=== PATIENT | female | born 1985 | race Hispanic/Latino ===

== ENCOUNTER 2017-08-14 21:19 | Emergency (ER) | payer BC ==
[2017-08-14 21:34] VITALS: BMI 29.0
[2017-08-14] MEDS ORDERED: TDAP Vaccine 0.5 mL Syr IM ONE (22:21)
--- NOTE | 2017-08-14 22:26 | ED PDOC ---
Arrival/HPI - General Chief Complaint: Abnormal Skin Integrity Time Seen by Provider: 08/14/17 21:53 Historian: Patient, Other (finance assistant) - History of Present Illness Narrative History of Present Illness (Text): you were treated in the ED today for tetanus out of date past 5 years, had an accidental cut to the left hand while at work with razor work, and otherwise without any pain/nausea/vomiting/headache/dizziness/difficulty breathing/chest pain/abdomen pain/numbness/tingling/loss of limb function/pain with urination. You were otherwise breathing easily, pink moist lips, smiling and talking with your finance assistant, good strength/sensation, alert/oriented, walking easily, clear lungs, no abdomen tenderness, left back of hand small cut with full range of motion/no bony tenderness/and otherwise warm/sensation/pink/warm/sensation/good radial pulse, no fever temp 98.5, stable heart rate 75, stable breathing rate 18 , excellent oxygen level 99% room air, elevated blood pressure 130/75 which we recommend repeat in 2-3 days primary care office to determine further treatment , you didn't want xray, you requested glue closure and cautioned for possible wound opening, and ant-septic cleanse with glue dermabond closure, observation, tetanus shot booster done in the ED with improvement, counselled to keep wound dry for 2 days, then can wet but don't rub and allow for limited movement to allow healing and prevent disruption of glue and thus discharged home with finance assistant. 1. Recommend follow-up primary care 2-3 days to review symptoms, for wound check. 2. If any worsening pain, fever, chills, nausea, vomiting, difficulty breathing, numbness, loss of limb function, pain with urination or any medical condition then return to the ED. 08/14/17 22:22 08/14/17 22:22 Time/Duration: 1-3 hours Symptom Onset: Gradual Quality: Other (no pain) Activities at Onset: Rest Context: Sitting Past Medical History - Provider Review Nursing Documentation Reviewed: Yes - Travel History Have you recently traveled outside [place] w/in the past 3 mons?: No - Cardiac Hx Cardiac Disorders: No - Pulmonary Hx Respiratory Disorders: No - Neurological Hx Neurological Disorder: No - HEENT Hx HEENT Disorder: No - Renal Hx Renal Disorder: No - Endocrine/Metabolic Hx Endocrine Disorders: No - Hematological/Oncological Hx Blood Disorders: No - Integumentary Hx Dermatological Disorder: No - Musculoskeletal/Rheumatological Hx Musculoskeletal Disorders: No - Gastrointestinal Hx Gastrointestinal Disorders: No - Genitourinary/Gynecological Hx Genitourinary Disorders: No - Psychiatric Hx Psychophysiologic Disorder: No Hx Substance Use: No - Surgical History Hx Appendectomy: Yes Family/Social History - Physician Review Nursing Documentation Reviewed: Yes Family/Social History: No Known Family HX Smoking Status: Light Smoker < 10 Cigarettes Daily Hx Alcohol Use: Yes Frequency of alcohol use: Socially Hx Substance Use: No Allergies/Home Meds Allergies/Adverse Reactions: Allergies amoxicillin Allergy (Verified 08/14/17 21:35) ANAPHYLAXIS gentamicin Allergy (Verified 08/14/17 21:35) URTICARIA Penicillins Allergy (Verified 08/14/17 21:35) ANAPHYLAXIS Tetracyclines Allergy (Verified 08/14/17 21:35) URTICARIA Home Medications: Home Meds Medication Instructions Recorded Confirmed No Known Home Med 08/14/17 08/14/17 Review of Systems - Review of Systems Constitutional: Normal Eyes: Normal ENT: Normal Respiratory: Normal Cardiovascular: Normal Gastrointestinal: Normal Genitourinary Female: Normal Musculoskeletal: Normal, Other (see skin) Skin: Laceration Neurological: Normal Endocrine: Normal Hemo/Lymphatic: Normal Psychiatric: Normal Physical Exam Vital Signs Reviewed: Yes Vital Signs Temp Pulse Resp BP Pulse Ox 08/14/17 22:02 98.5 F 75 18 130/75 99 Temperature: Afebrile Blood Pressure: Hypertensive Pulse: Regular Respiratory Rate: Normal Appearance: Positive for: Well-Appearing, Non-Toxic, Comfortable Pain Distress: None Mental Status: Positive for: Alert and Oriented X 3 - Systems Exam Head: Present: Atraumatic, Normocephalic Pupils: Present: PERRL Extroacular Muscles: Present: EOMI Conjunctiva: Present: Normal Ears: Present: Normal Mouth: Present: Moist Mucous Membranes Pharnyx: Present: Normal Nose (External): Present: Atraumatic Nose (Internal): Present: Normal Inspection Neck: Present: Normal Range of Motion, Other (no c-t-l spinal or paraspinal tenderness) Respiratory/Chest: Present: Clear to Auscultation, Good Air Exchange Cardiovascular: Present: Regular Rate and Rhythm Abdomen: No: Tenderness, Distention, Normal Bowel Sounds, Peritoneal Signs, Rebound, Guarding, McBurney's Point Tender, Rovsing's Sign Present, Hernias, Feeding Tubes, Ostomy Tubes, Mass/Organomegaly, Scars, Other Upper Extremity: Present: Normal Inspection, Other ( left back of hand small cut 2.5cm with full range of motion/no bony tenderness/and otherwise warm/ sensation/pink/warm/sensation/good radial pulse) Lower Extremity: Present: Normal Inspection Neurological: Present: GCS=15, CN II-XII Intact, Speech Normal, Motor Func Grossly Intact Skin: Present: Warm, Other (see msk) Psychiatric: Present: Alert, Oriented x 3, Normal Insight, Normal Concentration Medical Decision Making ED Course and Treatment: you were treated in the ED today for tetanus out of date past 5 years, had an accidental cut to the left hand while at work with razor work, and otherwise without any pain/nausea/vomiting/headache/dizziness/difficulty breathing/chest pain/abdomen pain/numbness/tingling/loss of limb function/pain with urination. You were otherwise breathing easily, pink moist lips, smiling and talking with your finance assistant, good strength/sensation, alert/oriented, walking easily, clear lungs, no abdomen tenderness, left back of hand small cut with full range of motion/no bony tenderness/and otherwise warm/sensation/pink/warm/sensation/good radial pulse, no fever temp 98.5, stable heart rate 75, stable breathing rate 18 , excellent oxygen level 99% room air, elevated blood pressure 130/75 which we recommend repeat in 2-3 days primary care office to determine further treatment , you didn't want xray, you requested glue closure and cautioned for possible wound opening, and ant-septic cleanse with wound explored and no foriegn body, with glue dermabond closure, observation, tetanus shot booster done in the ED with improvement, counselled to keep wound dry for 2 days, then can wet but don' t rub and allow for limited movement to allow healing and prevent disruption of glue and thus discharged home with finance assistant. 1. Recommend follow-up primary care 2-3 days to review symptoms, for wound check. 2. If any worsening pain, fever, chills, nausea, vomiting, difficulty breathing, numbness, loss of limb function, pain with urination or any medical condition then return to the ED. 08/14/17 22:26 08/14/17 22:27 procedure note: left hand 2.5cm lac to muscle on the extensor surface, nacl/ antiseptic cleanse, wound explored wo foriegn body, approximation, glue dermabond, hemostasis, ekta procedure. Reassessment Condition: Re-examined, Improved Disposition/Present on Arrival - Present on Arrival Any Indicators Present on Arrival: No History of DVT/PE: No History of Uncontrolled Diabetes: No Urinary Catheter: No History of Decub. Ulcer: No History Surgical Site Infection Following: None - Disposition Have Diagnosis and Disposition been Completed?: Yes Diagnosis: Hand laceration Disposition: HOME/ ROUTINE Disposition Time: 22:26 Patient Plan: Discharge Condition: IMPROVED Additional Instructions: you were treated in the ED today for tetanus out of date past 5 years, had an accidental cut to the left hand while at work with razor work, and otherwise without any pain/nausea/vomiting/headache/dizziness/difficulty breathing/chest pain/abdomen pain/numbness/tingling/loss of limb function/pain with urination. You were otherwise breathing easily, pink moist lips, smiling and talking with your finance assistant, good strength/sensation, alert/oriented, walking easily, clear lungs, no abdomen tenderness, left back of hand small cut with full range of motion/no bony tenderness/and otherwise warm/sensation/pink/warm/sensation/good radial pulse, no fever temp 98.5, stable heart rate 75, stable breathing rate 18 , excellent oxygen level 99% room air, elevated blood pressure 130/75 which we recommend repeat in 2-3 days primary care office to determine further treatment , you didn't want xray, you requested glue closure and cautioned for possible wound opening, and ant-septic cleanse with wound explored and no foriegn body, with glue dermabond closure, observation, tetanus shot booster done in the ED with improvement, counselled to keep wound dry for 2 days, then can wet but don' t rub and allow for limited movement to allow healing and prevent disruption of glue and thus discharged home with finance assistant. 1. Recommend follow-up primary care 2-3 days to review symptoms, for wound check. 2. If any worsening pain, fever, chills, nausea, vomiting, difficulty breathing, numbness, loss of limb function, pain with urination or any medical condition then return to the ED. Referrals: Jose Ramon Peterson MD [Primary Care Provider] - Follow up with primary
[2017-08-14 22:35] VITALS: RESP 18; O2SAT 99
[2017-08-14 22:49] VITALS: BP 128/68; PULSE 68; TEMP 98.1
== END 2017-08-14 22:47 | disposition home or self-care (01) ==
LOC: ED 21:19
DX: S61.412A Laceration without foreign body of left hand, initial encounter (principal); W45.8XXA Other foreign body or object entering through skin, initial encounter; Y99.0 Civilian activity done for income or pay; Z23 Encounter for immunization